=== PATIENT | female | born 1965 | race Caucasian/White ===

== ENCOUNTER → 2017-09-07 | Emergency (ER) | payer OTHER ==
[~2017-09-07] VITALS: Ht 172.7 cm; Wt 81.6 kg
[~2017-09-07] MED LIST: ALBUTEROL S2 MG/5 ML; TUSSI-PRES B LIQ5 ML; TUSSIONEX PENNKI5 ML PO; ZITHROMAX500 MG PO
== END | disposition home or self-care (01) ==
LOC: ER 20:11
DX: J11.1 Influenza due to unidentified influenza virus with other respiratory manifestations (principal)